=== PATIENT | female | born 1935 | race Caucasian/White ===

== ENCOUNTER 2017-08-20 09:25 | Inpatient (IN) | payer MEDICARE ==
--- NOTE | 2017-08-20 10:02 | RAD ---
FRONTAL CHEST RADIOGRAPH: Comparison: 05-01-14 Indication: Recurrent falls, syncope. FINDINGS: Cardiac silhouette is prominent in size. There is interstitial prominence and vascular congestion see n bilaterally. Eventration of the medial and right hemidiaphragm is present. There is osseous degener ative change. Surgical anchors seen at the level of the right humeral head. IMPRESSION: 1. No lobar consolidation. 2. Evidence of CHF. POS: [facility]
[2017-08-20 10:07] LABS: #Basophils 0.1 thou/uL (0.0-0.2); #Eosinphils 0.1 thou/uL (0.0-0.7); #Lymphocytes 1.5 thou/uL (1.20-3.40); #Monocytes 0.7 thou/uL (0.11-0.59); #Neutrophils 10.1 thou/uL (1.40-6.50); %Basophils 0.6 % (0.0-1.0); %Eosinophils 0.4 % (0.0-10.0); %Lymphocytes 12.2 % (21.0-51.0); %Monocytes 5.5 % (0.0-10.0); %Neutrophils 81.2 % (42.0-75.0); Hemoglobin 12.2 g/dL (12.0-16.0); Mean Corpuscular HGB CONC 33.9 g/dL (32.0-36.0); Mean Corpuscular Hemoglobin 31.6 pg (27.0-31.0); Mean Platelet Volume 6.4 fL (7.4-10.4); Platelet Count 337 thou/uL (130-400); RBC Distribution Width 12.8 % (11.5-14.5); Red Blood Cell (RBC) Count 3.87 mill/uL (4.20-5.40); White Blood Cell (WBC) Count 12.4 thou/uL (4.8-10.8)
[2017-08-20 10:26] LABS: ALT (SGPT) 14 U/L (8-55); AST (SGOT) 16 U/L (5-34); Albumin 4.5 g/dL (3.4-4.8); Alkaline Phosphatase 108 U/L (40-150); Anion Gap 15 mmol/L (10-20); BUN (Urea Nitrogen) 10 mg/dL (9.8-20.1); CK (CPK) 182 U/L (29-168); Calc. Creatinine Clearance 0 mL/min (70-130); Calcium 9.4 mg/dL (7.8-10.44); Carbon Dioxide 23 mmol/L (23-31); Chloride 87 mmol/L (98-107); Estimated GFR-MDRD 73; Globulin 3.2 g/dL (2.4-3.5); Glucose 113 mg/dL (83-110); Lipase 12 U/L (8-78); Potassium 3.4 mmol/L (3.5-5.1); Protein, Total 7.7 g/dL (6.0-8.3); Sodium 122 mmol/L (136-145)
[2017-08-20 10:30] LABS: CKMB 1.9 ng/mL (0-6.6); Troponin I Less than 0.010 ng/mL (< 0.028)
[2017-08-20] MEDS ORDERED: Ondansetron HCl/PF 4 MG/2 ML Vial ONE (10:54)
[2017-08-20 10:56] LABS: Bilirubin Negative (Negative); Blood, Urine Moderate (Negative); Clarity CLOUDY (Clear); Glucose, Urine (Dipstick) Negative (Negative); Leukocyte Trace (Negative); Nitrite Negative (Negative); Protein, Urine (Dipstick) 100 mg/dL (Neg-Trace); Specific Gravity, Urine 1.012 (1.002-1.036)
[2017-08-20 10:58] LABS: Bacteria/HPF 4+ HPF (None Seen); Hyaline Casts/LPF 0-3 HYALINE CAST LPF (0-3 Hyaline); Pathc Cast-AUWi Flag 0.29 (0-2.49); Squamous Epithelial 0-3 HPF (0-3)
--- NOTE | 2017-08-20 11:13 | CT ---
CT FACIAL BONES: Date: 08/20/17 Multiple axial tomograms obtained through facial bones with multiplanar reconstruction. INDICATION: Fall with injury to face. FINDINGS: Nasal bones appear intact. Orbits appear intact. Lamina papyracea appear intact. Zygoma appear intact . The paranasal sinuses are well aerated and clear of mucosal edema. The maxilla appears intact. The mandible appears intact. There is mild basilar invagination. The odontoid rides slightly high within the foramen magnum. IMPRESSION: 1. No evidence of facial bone fracture. 2. Mild basilar invagination, probably chronic and stable in this patient. POS: [facility]
--- NOTE | 2017-08-20 11:18 | CT ---
CT CERVICAL SPINE: HISTORY: Fall. COMPARISON: Comparison is made to previous exam from 05/02/15. FINDINGS: Axial images are obtained with coronal and sagittal reconstructions. CT images cervical spine demonstrate no evidence of acute cervical spine fractures. Cervical spine a lignment is within normal limits. No significant evidence of vertebral body abnormality is seen. Th e central canal and neural foramen are patent. IMPRESSION: 1. Normal CT cervical spine. 2. Incidentally noted atherosclerotic calcification of the distal common carotid artery seen bilater ally. POS: [facility]
--- NOTE | 2017-08-20 11:18 | CT ---
NONCONTRAST CT HEAD: Date: 08/30/17 HISTORY: Multiple falls recently. Symptoms have worsened in the past 1-2 weeks. Positive loss of consciousness after falling down stairs last week. Patient reports headache and difficulty walking. COMPARISON: 05/02/15. FINDINGS: There has been interval development of a small left parafalcine area of increased density measuring 1 4.0 mm x 5.0 mm, which is located anteriorly and above the level of the lateral ventricles consistent with a small parafalcine hemorrhage. There has also been interval development of low density anteriorly located bilateral subdural collect ions which measure approximately 5.0 mm in maximal transverse dimensions and demonstrate slightly gre ater increased density than the cerebrospinal fluid within the lateral ventricles. While findings are not related to acute subdural hematomas or collections, findings may be related to subacute but like ly more chronic small subdural collections from prior subdural hemorrhage. Again noted are chronic small vessel ischemic changes and mild cerebral volume loss. There is no hydr ocephalus or midline shift present. No significant mass effect is present. No calvarial fracture is seen, but there is a large area of increased density seen posteriorly at the vertex consistent with large scalp hematoma. Visualized paranasal sinuses and mastoid air cells are clear. No other interval change. IMPRESSION: 1. Acute small, anteriorly located, left parafalcine hemorrhage, measuring 14.0 mm x 5.0 mm. 2. 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 3. Mild cerebral volume loss. 4. Chronic small vessel ischemic changes. 5. Large scalp hematoma posteriorly at the vertex. Above findings discussed with Dr. Reyes in the emergency department on 08/20/17 at 1107 hours. CODE CR.
[2017-08-20] MEDS ORDERED: niCARdipine 20MG In NaCl 20 MG/200 ML BAG ONE (11:42)
[2017-08-20] MEDS ORDERED: Sodium Chloride 0.9% 100 ML ONE (11:42)
[2017-08-20] MEDS ORDERED: cefTRIAXone\\ROCEPHIN 2 GM VIAL ONE (11:42)
[2017-08-20 12:11] LABS: Prothrombin Time 13.2 SEC (12.0-14.7)
[2017-08-20 12:12] LABS: Amphetamine Not Detected (NotDetected); Barbiturates Screen Not Detected (NotDetected); Benzodiazepine Screen Detected (NotDetected); Cocaine Metabolite Screen Not Detected (NotDetected); Medtox Control Line Valid? VALID (VALID); Medtox Reader # READER 1; Methadone Not Detected (NotDetected); Methamphetamine Not Detected (NotDetected); Opiate Screen Not Detected (NotDetected); Oxycodone Screen Not Detected (NotDetected); Phencyclidine (PCP) Not Detected (NotDetected); THC/Cannabinoid Screen Not Detected (NotDetected); Tricyclic Screen Not Detected (NotDetected)
[2017-08-20 12:25] LABS: Acetaminophen Less than 6.0 mcg/mL (10.0-30.0); Alcohol Less than 10 mg/dL (Less than 10); Salicylate Less than 8.0 mg/dL (15.0-30.0)
--- NOTE | 2017-08-20 12:55 | RAD ---
LEFT FOREARM 2 VIEWS: HISTORY: Pain. Trauma. FINDINGS: Two views left forearm demonstrate fiberglass splint. There is a mildly displaced distal ulnar fract ure. A definite distal radius fracture is not appreciated. Possible fracture involving the hamate b one. Refer to hand radiograph report for further details. IMPRESSION: 1. Distal ulnar fracture. 2. Possible hamate bone fracture. POS: [facility]
--- NOTE | 2017-08-20 12:59 | RAD ---
THREE VIEWS LEFT HAND: HISTORY: Trauma. Pain. COMPARISON: None. FINDINGS: There is degenerative change of the 1st carpometacarpal joint space. Associated subluxation and defo rmity. With regard to the osseous structures of the hand and carpal bones, no obvious fracture. If there is pain or point tenderness, immobilization and followup imaging can be performed in 7-10 days. Distal ulnar fracture is identified. IMPRESSION: 1. No definite fracture with regards to the bones in the hands or wrist. Evaluation is somewhat osei ited in terms of carpal bones. Additional imaging if clinically warranted. 2. Chronic change in the 1st carpometacarpal joint space. 3. Distal ulnar fracture. POS: [facility]
[2017-08-20] MEDS ORDERED: Lorazepam 2 MG/ML VIAL SLOW IVP PRN ×2 (13:12→13:54)
[2017-08-20] MEDS ORDERED: Ondansetron HCl/PF 4 MG/2 ML Vial IVP PRN ×2 (13:12→13:54)
[2017-08-20] MEDS ORDERED: Sodium Chloride 0.9% 1,000 ML IV SCH (13:30)
--- NOTE | 2017-08-20 13:55 | HP ---
HISTORY OF PRESENT ILLNESS: Dariusz Ospina is an 82-year-old female who has visited [facility] last week, fell down stairs. She states she lost consciousness, woke up, had fallen down stairs. She was seen in the emergency room there. She has a fracture of her left wrist, has a splint. She w as told to see her primary care doctor to have it off in the near future. She has an appointment to see Dr. Huber next week for that. The patient has fallen several times and over the past 2 years h as had multiple falls. The patient was found on the floor side of the bed, not know if she fell out of bed or fell when standing. She was seen in the emergency room, noted to be hypertensive and a Car dene drip initiated. She had a brain CAT scan and Dr. Brewer was consulted. The patient is alert and oriented. GCS 15. The patient has acute small anterior located left falcine hemorrhage measuri ng 14 x 5 mm. There were some bifrontal subdural collections, old hygromas. Chronic ischemic change s and some ecchymosis over the scalp noted. Dr. Brewer is planning on watching her. Because of h er Cardene drip she will go into [facility]. We will consult Cardiology and Hospitalist to evaluate her fo r her frequent falls. The emergency room physician informs me that the and have narcoti c analgesics that they use interchangeably and sought multiple physicians obtaining these. HOME MEDICATIONS: Listed his zolpidem tartrate 5 mg at bedtime, 40 mg Prilosec a day, multivitamins daily, hydrochlorothiazide daily, hydrocodone 5/325 p.r.n. pain, ferrous sulfate daily, calcium carbo isai daily. PAST SURGICAL HISTORY: 1. 09/06/2014 - Dr. Gamez performed da Shelly right colectomy for a right colon, large right polyp mass. 2. 12/19/2014 Dr. 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 3. Dr. Cortez 05/02/2015 did a right shoulder, closed reduction for fracture dislocation 4. 05/03/2015 - The patient had a left thumb metacarpal and distal phalanx fracture, closed treatmen t with a splint and cast. 5. She has had total abdominal hysterectomy, bilateral salpingo-oophorectomy. 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 The breast specimen reve aled DCIS negative, multifocal ductal carcinoma in situ, TIS N0 M0. FAMILY MEDICAL HISTORY: Noncontributory. REVIEW OF SYSTEMS: Frequent falls. History of seeing multiple physicians with narcotic analgesic us e. PHYSICAL EXAMINATION: VITAL SIGNS: Blood pressure 190/100, heart rate 80. NEURO: Alert and oriented. GCS 15. HEENT: There is ecchymosis right eye. NECK: Cervical collar in place, but does not fit well. LUNGS: Clear to auscultation. CARDIAC: Regular rate and rhythm without murmur or gallop. ABDOMEN: Soft, nontender. PELVIS: Stable. EXTREMITIES: Unremarkable. Splint left forearm, wrist. CT scan of the cervical spine normal, arteriosclerotic calcifications carotid artery bilaterally. Fa cial bone CAT scan, no evidence of fracture, left forearm x-ray, distal ulnar fracture, possible hama te bone fracture. Hand x-ray left; distal ulnar fracture. No carpal bone fractures noted. Chest x- ray; cardiomegaly. No lobar consolidation. ASSESSMENT AND PLAN: 1. CAT scan reveals changes with repeat fall injuries, hygromas as well as the acute bleed which is small and there is no intervention necessary. We will observe her. We will need to address her freq uent falls this hospitalization. We will consult Hospitalist and Cardiology, obtain an echocardiogra m, consult case management for rehab placement, possible assisted living consideration, family is in agreement. 2. Left ulnar fracture. Consult Orthopedics for followup and disposition of this splint, this is a week old after a fall in [place], [place]. 3. 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 4. History of right colectomy. 5. Left partial mastectomy history, DCIS.
[2017-08-20] MEDS ORDERED: cloNIDine 0.1 MG TAB PO PRN (15:32)
[2017-08-20] MEDS ORDERED: traMADol HCl 50 MG TAB PO PRN (15:32)
[2017-08-20] MEDS ORDERED: Diabetic Tussin 200 MG/10 ML UDCUP PO PRN (15:32)
[2017-08-20] MEDS ORDERED: Nitroglycerin 0.4 MG TAB (25 Tab Bottle) SL PRN (15:32)
[2017-08-20] MEDS ORDERED: Acetaminophen 325 MG TAB PO PRN (15:32)
[2017-08-20] MEDS ORDERED: Acetaminophen 650 MG Suppository PR PRN (15:32)
[2017-08-20] MEDS ORDERED: Benzonatate 100 MG CAP PO PRN (15:32)
[2017-08-20] MEDS ORDERED: Senokot 8.6 MG TAB PO PRN (15:32)
[2017-08-20] MEDS ORDERED: Calcium Carbonate 500 MG ChewTAB PO PRN (15:32)
[2017-08-20] MEDS ORDERED: Bisacodyl 5 MG TAB PO PRN (15:32)
[2017-08-20] MEDS ORDERED: Loratadine 10 MG TAB PO PRN (15:32)
[2017-08-20] MEDS ORDERED: hydrALAZINE 20 MG/ML VIAL SLOW IVP PRN (15:32)
[2017-08-20] MEDS ORDERED: Mag-Al 1200 mg/1200 mg/30 ML UDCUP PO PRN (15:32)
[2017-08-20] MEDS ORDERED: CCU Electrolyte Replacement 1 EACH FS ONE (15:37)
[2017-08-20] MEDS ORDERED: Potassium Phosphate 9 MMOL in Sodium Chloride 0.9% 100 ML IVPB PRN (15:39)
[2017-08-20] MEDS ORDERED: Potassium Chloride 20 MEQ TAB PO PRN (15:39)
[2017-08-20] MEDS ORDERED: CCU ELECTROLYTE REPLACEMENT PROTOCOL FS PRN (15:39)
[2017-08-20] MEDS ORDERED: Magnesium Oxide 400 MG TAB PO PRN ×2 (15:39)
[2017-08-20] MEDS ORDERED: Potassium Chloride 40 MEQ in Premix Bag 1 BAG IVPB PRN (15:39)
[2017-08-20] MEDS ORDERED: Potassium Phosphate 12 MMOL in Sodium Chloride 0.9% 250 ML 250 ML IV PRN (15:39)
[2017-08-20] MEDS ORDERED: Potassium Chloride 40 MEQ in Sodium Chloride 0.9% 250 ML 250 ML IVPB PRN (15:39)
[2017-08-20] MEDS ORDERED: Magnesium 2 GM/NS 0.9% 100 ML 2 GM in Premix Bag 1 BAG IVPB PRN (15:39)
[2017-08-20] MEDS ORDERED: Potassium Phosphate 15 MMOL in Sodium Chloride 0.9% 250 ML 250 ML IV PRN (15:39)
--- NOTE | 2017-08-20 16:37 | PDOC.PN ---
- Subjective Encounter Start Date: 08/20/17 Encounter Start Time: 16:35 Subjective: reports dizziness and then fakll for last 3 months. -: denies any CP/SOB/Diaphoresis/paraesthesias /muscl weakness -: IM team consulted for medical management.admitted to trauma team for fall reports vomiting since yesterday and poor PO intake last 2 days. care discussed with at bedside - Objective MAR Reviewed: Yes Vital Signs & Weight: Vital Signs (12 hours) Pulse Ox 08/20/17 16:11 94 L Result Diagrams: 08/20/17 09:56 08/20/17 09:56 Additional Labs: Laboratory Tests 08/20/17 09:56 CK-MB (CK-2) 1.9 Troponin I Less than 0.010 labs reviewed Phys Exam - Physical Examination Constitutional: NAD HEENT: PERRLA, moist MMs, sclera anicteric, oral pharynx no lesions, 2+ tonsils Neck: no nodes, no JVD, supple, full ROM Respiratory: no wheezing, no rales, no rhonchi, clear to auscultation bilateral Cardiovascular: RRR, no significant murmur, no rub Gastrointestinal: soft, non-tender, no distention, positive bowel sounds Musculoskeletal: no edema, pulses present Neurological: non-focal, normal sensation, moves all 4 limbs Psychiatric: normal affect, A&O x 3 Deviation from normal: extensive brusiung all over including head and face Dx/Plan (1) UTI (urinary tract infection) Status: Acute (2) Hypokalemia Code(s): E87.6 - HYPOKALEMIA Status: Acute (3) Uncontrolled hypertension Code(s): I10 - ESSENTIAL (PRIMARY) HYPERTENSION Status: Acute (4) Near syncope Status: Acute (5) Multiple falls Code(s): R29.6 - REPEATED FALLS Status: Acute - Plan plan discussed w/ family, continue antibiotics, PT/OT, respiratory therapy, incentive spirometry, out of bed/ambulate, DVT proph w/SCDs add rocephin. urine cx -: replace potassium and recheck. CCU electrolyte protocol -: ECHO,MRI evelyn and carotid doppler to look for causes of near syncope -: check orthostatics when able to move better. -: cardene drip for uncontrolled HTN * .Tele monitoring. * cardiology consulted * am labs * IM team will follow Review of Systems - Review of Systems Constitutional: weakness, malaise. negative: fever, chills, sweats, other ENT: negative: Ear Pain, Ear Discharge, Nose Pain, Nose Discharge, Nose Congestion, Mouth Pain, Mouth Swelling, Throat Pain, Throat Swelling, Other Respiratory: negative: Cough, Dry, Shortness of Breath, Hemoptysis, SOB with Excertion, Pleuritic Pain, Sputum, Wheezing Cardiovascular: light headedness. negative: chest pain, palpitations, orthopnea , paroxysmal nocturnal dyspnea, edema, other Gastrointestinal: Nausea, Vomiting Genitourinary: negative: Dysuria, Frequency, Incontinence, Hematuria, Retention , Other Musculoskeletal: negative: Neck Pain, Shoulder Pain, Arm Pain, Back Pain, Hand Pain, Leg Pain, Foot Pain, Other Skin: negative: Rash, Lesions, Arnav, Bruising, Other Neurological: negative: Weakness, Numbness, Incoordination, Change in Speech, Confusion, Seizures, Other - Medications/Allergies Allergies/Adverse Reactions: Allergies Allergy/AdvReac Type Severity Reaction Status Date / Time Sulfa (Sulfonamide Allergy RASH AND Verified 08/20/17 12:53 Antibiotics) ITCHING Medications: Current Medications Acetaminophen (Tylenol) 650 mg PO Q4H PRN PRN Reason: Headache/Fever or Mild Pain Acetaminophen (Tylenol) 650 mg [place] Q4H PRN PRN Reason: Headache/Fever or Mild Pain Al Hydroxide/Mg Hydroxide (Maalox) 15 ml PO Q4H PRN PRN Reason: Heartburn or Indigestion Benzonatate (Tessalon) 100 mg PO Q4H PRN PRN Reason: Cough Bisacodyl (Dulcolax) 10 mg PO DAILYPRN PRN PRN Reason: Constipation Calcium Carbonate (Tums) 1,000 mg PO Q4H PRN PRN Reason: Heartburn or Indigestion Clonidine (Catapres) 0.1 mg PO Q4H PRN PRN Reason: Systolic BP > 160 Famotidine (Pepcid) 20 mg PO BID SNEHA Guaifenesin (Robitussin Sf) 200 mg PO Q4H PRN PRN Reason: Cough Hydralazine HCl (Apresoline) 10 mg SLOW IVP Q4H PRN PRN Reason: Systolic BP > 170 Sodium Chloride (Normal Saline 0.9%) 1,000 mls @ 70 mls/hr IV .[id number] SNEHA Ceftriaxone Sodium 1 gm/ (Sodium Chloride) 100 mls @ 200 mls/hr IVPB Q24HR SNEHA Potassium Chloride 40 meq/ (Sodium Chloride) 270 mls @ 135 mls/hr IVPB ASDIR PRN PRN Reason: FOR SERUM K+ 2.5 - 3.5 Potassium Chloride 40 meq/ (Device) 100 mls @ 50 mls/hr IVPB ASDIR PRN PRN Reason: FOR SERUM K+ 2.5 - 3.5 Magnesium Sulfate 1 gm/ Sodium (Chloride) 102 mls @ 102 mls/hr IV PRN PRN PRN Reason: MAG LEVEL 1.4 - 2.0 Magnesium Sulfate 2 gm/ Device 100 mls @ 100 mls/hr IVPB ASDIR PRN PRN Reason: MAGNESIUM < 1.4 Potassium Phosphate 9 mmol/ (Sodium Chloride) 103 mls @ 25.75 mls/hr IVPB ASDIR PRN PRN Reason: Phosphate 1.0-1.8 Potassium Phosphate 12 mmol/ (Sodium Chloride) 254 mls @ 63.5 mls/hr IV ASDIR PRN PRN Reason: Serum phosphate 0.5-0.9 Potassium Phosphate 15 mmol/ (Sodium Chloride) 255 mls @ 63.75 mls/hr IV ASDIR PRN PRN Reason: Serum Phos < 0.5 Loratadine (Claritin) 10 mg PO DAILYPRN PRN PRN Reason: Sinus Symptoms Lorazepam (Ativan) 2 mg SLOW IVP Q6H PRN PRN Reason: Anxiety/Agitation Magnesium Oxide (Magnesium Oxide) 400 mg PO BIDPRN PRN PRN Reason: FOR SERUM MAG 1.4 - 2.0 Magnesium Oxide (Magnesium Oxide) 800 mg PO PRN PRN PRN Reason: FOR SERUM MAG < 1.4 Miscellaneous Medication (Phos-Nak) 1 pkt PO TIDPRN PRN PRN Reason: FOR PHOS LEVEL 1.0 - 1.8 Miscellaneous Medication (Phos-Nak) 2 pkt PO TIDPRN PRN PRN Reason: FOR PHOS LEVEL 0.5 - 1.0 Nitroglycerin (Nitrostat) 0.4 mg SL Q5MIN PRN PRN Reason: Chest Pain Ccu Electrolyte (Replacement Protocol) 0 each FS PRN PRN PRN Reason: FOR ELECTROLYTE REPLACEMENT Ondansetron HCl (Zofran) 4 mg IVP Q6H PRN PRN Reason: Nausea Potassium Chloride (K-Dur) 40 meq PO ASDIR PRN PRN Reason: FOR SERUM K+ 2.5 - 3.5 Potassium Chloride (Klor-Con) 40 meq PER TUBE ASDIR PRN PRN Reason: FOR SERUM K+ 2.5-3.5 Senna (Senokot) 2 tab PO HSPRN PRN PRN Reason: Constipation Sodium Chloride (Flush - Normal Saline) 10 ml IVF PRN PRN PRN Reason: Saline Flush Tramadol HCl (Ultram) 50 mg PO Q4H PRN PRN Reason: Moderate Pain (4-6)
[2017-08-20 17:07] VITALS: BMI 23.8
[2017-08-20] MEDS: Sodium Chloride 0.9% 1,000 ML IV SCH (17:57)
--- NOTE | 2017-08-20 18:08 | ULT ---
CAROTID ULTRASOUND: 08/20/17 COMPARISON: None. HISTORY: Dizziness and multiple falls. TECHNIQUE: Multiplanar bustos scale and color doppler images were obtained in a carotid ultrasound. Spectral deann sis of the doppler waveforms were performed. FINDINGS: A small amount of plaque is seen in the proximal bilateral internal carotid arteries. The doppler wav eforms are normal bilaterally. Peak systolic velocity in the right ICA is 70 cm/s. Peak systolic velocity in the right CCA is 132 cm /s. The right ICA/CCA ratio is 0.5. Peak systolic velocity in the left ICA is 74 cm/s. Peak systolic velocity in the left CCA is 85 cm/s. The left ICA/CCA ratio is 0.8. Both vertebral arteries demonstrate antegrade flow without focal stenosis. IMPRESSION: No evidence of hemodynamically significant stenosis. POS: [facility]
[2017-08-20] MEDS ORDERED: niCARdipine HCl 25 MG in Sodium Chloride 0.9% 250 ML 240 ML IVPB SCH (19:15)
[2017-08-20] MEDS ORDERED: Famotidine 20 MG TAB PO SCH (21:00)
[2017-08-20] MEDS: Famotidine 20 MG TAB PO SCH (21:58)
[2017-08-21] MEDS ORDERED: cefTRIAXone\\ROCEPHIN 1 GM in Sodium Chloride 0.9% 100 ML IVPB SCH (00:01)
--- NOTE | 2017-08-21 04:39 | CON ---
DATE OF CONSULTATION: 08/20/2017 HISTORY OF PRESENT ILLNESS: This is an 82-year-old female who reports to our ER today for evaluation of dizziness/syncope. She states that Wednesday she fell down, two flights of stairs and went to a [place] ER. At that time, she was diagnosed with a small bleed and that she also had a left wrist fracture. In the hospital kept her for a few days and then released her to go home and follow up with her primary care physician. Since that time, she has fallen several more times, she has not been able to make a follow up with her primary care physician. She fell again today and that is why she is in our emergency room. Patient states that her falls are usually associated with a dizziness and weakness. She states that this vertigo makes the room spin and she has to stop and sit close her eyes for it to return to normal. She states that she will get dizzy even if she just turns her head quickly. Today, the patient states that she has a dull headache across the front of her head like a band. It is a 5/10. Patient is not taking any blood thinners or aspirin. PAST MEDICAL HISTORY: Migraines and vertigo. PAST SURGICAL HISTORY: Hysterectomy, colon resection, two bunion surgeries, urinary surgery, breast mass removal. FAMILY HISTORY: Dad from cardiovascular accident, mom from a stroke, aunt also had a cardiovascular accident. SOCIAL HISTORY: Patient is and lives with her 60 some years in a home. She states that she does not smoke or drink. It is unclear if the patient has an opioid addiction. ALLERGIES: SULFA, ANTIBIOTICS. CURRENT MEDICATIONS: Olanzapine-fluoxetine, meclizine, omeprazole, trazodone, tramadol, hydrochlorothiazide. PHYSICAL EXAMINATION: CONSTITUTIONAL: Vital signs have been reviewed. Patient is afebrile, pulse is normal. Patient is hypertensive. GENERAL: Patient is alert and oriented to person, place, and time. She is resting comfortably in her ER hospital bed. HEAD: Head is atraumatic, normocephalic. EYES: Pupils are equal, round, and reactive to light. Extraocular movements are intact. Conjunctivae is normal. Sclera is normal. ENT: Hearing is intact. Moist mucous membranes. NECK: Normal range of motion. Trachea is midline. RESPIRATORY: Normal work of breathing room air. CARDIOVASCULAR: Heart rate, regular rate and rhythm. NEUROLOGIC: [place] coma scale 15. Normal speech, spontaneous fluent and understandable. Normal fund of knowledge. No focal motor deficits were noted. No sensory deficits noted. Cranial nerves II-XII were checked and are intact. Full range of motion of the neck. EXTREMITIES: Upper extremity: Patient has a left wrist splint. She can wiggle her fingers on that side and has motion with her shoulder and elbow, 5/5 strength in deltoids and biceps. Right shoulder has a previous injury, she does not move that arm well. 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 Lower extremities has 5/5 motor strength. IMAGING: CT of the brain, acute small anterior located left parafalcine hemorrhage, subacute versus chronic small bifrontal subdural collections, mild cerebral volume loss, chronic small vessel ischemic changes, large scalp hematoma. ASSESSMENT AND PLAN: CT reveals changes consistent with frequent falls, a small acute anterior located left parafalcine hemorrhage is present. There is no neurosurgical intervention needed at this time. Patient will need to be observed. Patient should be worked up for her frequent falls. MITCHELL
--- NOTE | 2017-08-21 04:42 | CON ---
DATE OF CONSULTATION: 08/20/2017 HISTORY OF PRESENT ILLNESS: Ms. Ospina is a very pleasant 82-year-old female. Her tells me that she is followed by Dr. Huber. He was actually tried calling Dr. Huber try to get in to see him. She actually fell backwards down some stairs last week in [place], [place], fractured her left upper extremity, lost consciousness and was found to have a subdural hematoma there. She has a splint on her left arm. She has a history of falling last 5-6 months according to the , although the history provided to Dr. Thornton, but this has been going on for several years. He denies that she has ever had a neurological workup. She was noted to be hypertensive in the ER with a diastolic of over 100 and a systolic over 200, so Cardene was started. Some of these episodes have been orthostatic by history. Apparently, she had an episode this morning where her heard her yelling and found her on the floor. He said it was all we could to get her up in bed. They did not want to go to the [facility], so the and the son loaded her in the car and drove her here. PAST MEDICAL HISTORY: 1. Remarkable for right hemicolectomy for a large mass. 2. History of left mastectomy for carcinoma in situ. 3. History of closed reduction for a fracture dislocation of her right shoulder in 2016. 4. History of closed treatment of the thumb metacarpal and distal phalanx fracture in 2016 during the same admission. 5. History of a hysterectomy. 6. Bilateral salpingo-oophorectomy. 7. Colon resection. 8. Adenoma in her breast, specimen was carcinoma in situ. FAMILY HISTORY: Negative for lung disease at an early age. REVIEW OF SYSTEMS: 10 point otherwise, negative. PHYSICAL EXAMINATION: GENERAL: She is pleasant, cooperative. She is oriented x3. She has extensive ecchymoses on her right face. She has a splint on her left upper extremity to the elbow. VITAL SIGNS: Blood pressure 137/93, heart rate is 112, respiratory rate 20, oximetry is 96 on 2 liters. HEENT: Pupils are equal. Sclerae is anicteric. NECK: Supple. She has no neck pain. LUNGS: Clear. HEART: Regular rhythm. S1 and S2 are normal. ABDOMEN: Soft and nontender. EXTREMITIES: Without clubbing, cyanosis, or edema. Head CT shows chronic subdurals that are bifrontal, small vessel ischemic changes were noted. There is a parafalcine hemorrhage seen. With her significant hypertension on presentation, it would seem unlikely that these episodes are orthostatic, although orthostatic blood pressures should be checked. Since this has been going on for at least 6 months, it is unlikelythis is related to cardiac rhythm disturbance and certainly not likely to be related to carotid disease even if carotid disease is found or identified. There is a note in the admission history and physical that she and her have some narcotic seeking behavior. We will have to contact Dr. Huber who apparently is out of the office this week to sort through that. I think her management at this point is appropriate. The Cardene drip can be discontinued once her blood pressure is controlled, adding Norvasc may be helpful. This is a 50 minute visit with greater than 50% of the time spent on unit with coordination of care. MITCHELL
[2017-08-21 05:28] LABS: #Lymphocytes 1.4 thou/uL (1.20-3.40); #Monocytes 0.9 thou/uL (0.11-0.59); #Neutrophils 11.3 thou/uL (1.40-6.50); %Basophils 0.3 % (0.0-1.0); %Eosinophils 0.3 % (0.0-10.0); %Lymphocytes 10.5 % (21.0-51.0); %Monocytes 6.3 % (0.0-10.0); %Neutrophils 82.5 % (42.0-75.0); Hemoglobin 11.8 g/dL (12.0-16.0); Mean Corpuscular HGB CONC 34.2 g/dL (32.0-36.0); Mean Corpuscular Hemoglobin 31.9 pg (27.0-31.0); Mean Platelet Volume 6.3 fL (7.4-10.4); Platelet Count 296 thou/uL (130-400); RBC Distribution Width 12.9 % (11.5-14.5); Red Blood Cell (RBC) Count 3.71 mill/uL (4.20-5.40); White Blood Cell (WBC) Count 13.7 thou/uL (4.8-10.8)
[2017-08-21 05:32] LABS: ALT (SGPT) 12 U/L (8-55); AST (SGOT) 16 U/L (5-34); Albumin 3.8 g/dL (3.4-4.8); Alkaline Phosphatase 101 U/L (40-150); Anion Gap 15 mmol/L (10-20); BUN (Urea Nitrogen) 8 mg/dL (9.8-20.1); Bilirubin, Total 0.6 mg/dL (0.2-1.2); Calc. Creatinine Clearance 0 mL/min (70-130); Calcium 8.8 mg/dL (7.8-10.44); Carbon Dioxide 19 mmol/L (23-31); Chloride 90 mmol/L (98-107); Estimated GFR-MDRD Greater than 90; Glucose 103 mg/dL (83-110); Potassium 3.3 mmol/L (3.5-5.1); Protein, Total 6.8 g/dL (6.0-8.3); Sodium 121 mmol/L (136-145)
--- NOTE | 2017-08-21 08:09 | PRG ---
DATE OF SERVICE: 08/21/2017 NEUROSURGERY NOTE SUBJECTIVE: I personally interviewed and examined the patient and agree with documentation of Linda Alvarez PA-C dated 08/20/2017. Briefly, Ms. Dariusz Ospina is an 82-year-old woman with chronic narcotic use, UTI and positional vertig o who has had a number of falls at home. It has become more and more difficult for her to manage at home independently. One of the falls resulted in a fractured wrist. The reason we were consulted wa s for interhemispheric subdural hematoma. She was admitted overnight and watched in the ICU and I am seeing her this morning in the ICU bed. Her vitals overnight did not show any fever. Blood pressur es have been in the 140s to 150s. When I walked in the room, she is awake, she is alert, she answers questions appropriately. Cranial nerves are working well. There is no neglect. There is no drift. There is no lateralizing motor or sensory deficits. I reviewed imaging myself and there are subdural collections of spinal fluid anterior to the frontal lobes bilaterally without mass effect and without shift. I think this is related to atrophy and thes e are hygromas rather than subdurals. However, there is a small collection of subdural blood along t he interhemispheric falx and this blood is not causing mass effect whatsoever. My plan for Ms. Ospina is to rescan her head in about 3 weeks to ensure there is resolution of the int erhemispheric hemorrhage. I will not offer her surgery as I do not think that there is any reason to do so. I would not offer her surgery, as I do not think that the hygromas are causing any symptoms and the interhemispheric blood is so little that it will likely wash away on its own over time. I do, however, believe that Ms. Ospina should be worked up for positional vertigo. I do not think she has myelopathy as the CT scan of the cervical spine does not show any spinal cord compression. I wi ll defer to the medical team for ongoing management and be available for questions should they arise during this hospitalization.
[2017-08-21] MEDS ORDERED: Acetaminophen 325 MG TAB PO SCH ×2 (08:15→09:45)
[2017-08-21] MEDS ORDERED: Hydrochlorothiazide 25 MG TAB PO SCH (08:15)
[2017-08-21] MEDS: Sodium Chloride 0.9% 1,000 ML IV SCH (08:39)
[2017-08-21] MEDS ORDERED: Amlodipine 5 MG TAB PO SCH (09:00)
[2017-08-21] MEDS ORDERED: Scopolamine 1.5 mg/72 hour Patch TD SCH (09:00)
[2017-08-21] MEDS ORDERED: Amlodipine 10 MG TAB PO SCH (09:00)
[2017-08-21] MEDS: Ferrous Sulfate 325 MG TAB PO SCH (10:23)
[2017-08-21] MEDS: Multivit, Therapeutic 1 TAB PO SCH (10:23)
[2017-08-21] MEDS: Famotidine 20 MG TAB PO SCH ×2 (10:23→20:57)
[2017-08-21] MEDS: Calcium Carbonate + Vit D 1 TAB PO SCH (10:24)
[2017-08-21] MEDS: Acetaminophen 500 MG TAB PO SCH ×3 (10:32→23:32)
--- NOTE | 2017-08-21 10:53 | PRG ---
DATE OF SERVICE: 08/21/2017 SUBJECTIVE: Dariusz Ospina has been transferred out of the ICU. She has had no rhythm disturbances. PHYSICAL EXAMINATION: VITAL SIGNS: Heart rates in the 90s, blood pressure 160/84, respiratory rate is 18. LUNGS: Unchanged. HEART: Unchanged. ABDOMEN: Unchanged. It would not be unreasonable to keep her in a monitored bed situation just simply to rule out intermi ttent bradycardia that might lead to falls. Her history sounds like gait instability, deconditioning , plus or minus orthostatic issues, but she would benefit in my opinion from telemetry monitoring sin ce she is in the hospital. We will sign off on transfer out of the ICU since she is on the Trauma Se rvice.
[2017-08-21 11:08] LABS: Magnesium 1.6 mg/dL (1.6-2.6); Phosphorus 2.6 mg/dL (2.3-4.7)
--- NOTE | 2017-08-21 11:29 | PRG ---
DATE OF SERVICE: 08/21/2017 SUBJECTIVE: This is an 82-year-old female in hospital day #2, status post multiple falls with an acu te on subacute ICH. The patient has a history of vertigo and multiple falls recently. Her urinalysi s this morning reveals a gram negative tee urinary tract infection. Overnight, the patient has remai katarina hemodynamically stable and Cardene drip is off this morning. She has had multiple PVCs, likely s econdary to hypokalemia. Upon our evaluation this morning, she has a chief complaint of headache, bu t otherwise vocalizes no complaint. OBJECTIVE: VITAL SIGNS: Temperature 97.9, pulse 95, respiration 18, O2 sat 96% on room air, blood pressure 160/ 84. GENERAL: Well-developed elderly appearing female in no acute distress, resting in bed. HEAD: Right-sided ecchymosis is noted. There is a posterior scalp suture. PULMONARY: Normal work of breathing. Symmetric rise. CARDIOVASCULAR: Regular rate and rhythm. GASTROINTESTINAL: Abdomen is soft, nontender, nondistended. MUSCULOSKELETAL: Moves all extremities x4. Left upper extremity dressing intact. NEUROLOGIC: No focal deficit is noted. GCS is 15. LABORATORY DATA: WBC 13.7, hemoglobin 11.8, hematocrit 34.6, platelet count 296. Sodium 121, potass ium 3.3, chloride 90, carbon dioxide 19, BUN 8, creatinine 0.63. AST and ALT are within normal limit s. Magnesium and phosphorus are pending. Microbiology with presumptive E. coli greater than 100,000 colony forming units. ASSESSMENT: 1. Status post fall. 2. 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 3. Left ulnar fracture after 1 week old. Orthopedic Surgery has been consulted. 4. Acute traumatic pain. 5. Escherichia coli urinary tract infection, present on admission. 6. Altered mental status secondary to traumatic brain injury and possible urinary tract infection. 7. Hyponatremia. 8. History of hypertension on hydrochlorothiazide as a home medication, likely contributing to above hyponatremia. 9. Hypokalemia. PLAN: Start the patient on Bactrim p.o. b.i.d. We will initiate free water restriction, 1200 mL. Di scontinue hydrochlorothiazide as may be contributing to hyponatremia. The patient has been weaned of f of Cardene drip. We will start Norvasc 5 mg p.o. daily. Continue p.r.n. antihypertensives. Tylen ol and Ultram for pain control. Continue to monitor neuro status. Follow Orthopedic, Neurosurgery a nd Cardiology recommendations. Per discussion with Critical Care Medicine, the patient should be tra nsferred to a monitor bed. Case management for eventual disposition. Patient is from [place] a nd would like to be transferred to the [place] swing bed once medically cleared. Replete abnorm al electrolytes. PT, OT, and speech. The patient was seen and evaluated with Dr. Kaye.
[2017-08-21] MEDS ORDERED: Acetaminophen 500 MG TAB PO SCH (12:00)
--- NOTE | 2017-08-21 13:12 | MRI ---
MRI EMELYN NONCONTRAST: CLINICAL HISTORY: Head injury related to fall. FINDINGS: There is susceptibility at the interhemispheric falx anteriorly localizing to small subdural hematoma depicted on preceding head CT. There are subdural hygromas/chronic subdural hematomas overlying eac h frontal convexity stable in volume to the preceding head CT. A prominent posterior scalp hematoma is present. There is mild to moderate chronic microvascular ischemic disease involving the cerebral white matter. Ventricular system is age appropriate in size. No midline shift. There is right mast oid fluid. Skull base flow voids are preserved. [place] intraocular lenses are absent. There is no acute territorial infarction. IMPRESSION: 1. Small subdural hematoma along the interhemispheric falx, anteriorly, is redemonstrated, as are ch ronic subdural hematoma/subdural hygroma formation overlying each frontal convexity. 2. Prominent posterior scalp hematoma. 3. No acute territorial infarction or midline shift. POS: [facility]
[2017-08-21] MEDS: traMADol HCl 50 MG TAB PO SCH ×2 (13:54→20:57)
--- NOTE | 2017-08-21 15:41 | PDOC.PN ---
- Subjective Encounter Start Date: 08/21/17 Encounter Start Time: 15:41 Subjective: feels better.no acute changes - Objective MAR Reviewed: Yes Vital Signs & Weight: Vital Signs (12 hours) Temp Pulse Pulse Pulse Resp BP BP 08/21/17 13:15 99 92 157/74 H 141/72 H 08/21/17 11:42 97.5 F L 94 16 08/21/17 11:25 08/21/17 09:00 98.5 F 94 16 08/21/17 08:00 97.9 F 92 20 08/21/17 04:00 98.7 F BP BP BP BP Pulse Ox 08/21/17 13:15 08/21/17 11:42 130/81 95 08/21/17 11:25 196/90 H 181/81 H 119/63 08/21/17 09:00 158/102 H 94 L 08/21/17 08:00 08/21/17 04:00 Weight Weight 2.406 oz Most Recent Monitor Data Heart Rate from ECG 95 NIBP 160/84 NIBP BP-Mean 105 Respiration from ECG 18 SpO2 96 I&O: 08/20/17 08/21/17 08/22/17 06:59 06:59 06:59 Intake Total 1562 280 Output Total 1525 Balance 37 280 Result Diagrams: 08/21/17 04:20 08/21/17 04:20 Additional Labs: Microbiology 08/20/17 10:45 Urine clean catch Urine Culture - Preliminary Presumptive Escherichia coli Laboratory Tests 05/02/15 08/20/17 08/21/17 18:24 09:56 04:20 Sodium 128 L 122 L 121 L Phosphorus Magnesium 08/21/17 04:20 Sodium Phosphorus 2.6 Magnesium 1.6 labs reviewed Phys Exam - Physical Examination Constitutional: NAD HEENT: PERRLA, moist MMs, sclera anicteric, oral pharynx no lesions Neck: no nodes, no JVD, supple, full ROM Respiratory: no wheezing, no rales, no rhonchi, clear to auscultation bilateral Cardiovascular: RRR, no significant murmur Gastrointestinal: soft, non-tender, no distention, positive bowel sounds Musculoskeletal: no edema, pulses present Neurological: non-focal, normal sensation, moves all 4 limbs Psychiatric: normal affect, A&O x 3 Skin: no rash Dx/Plan (1) UTI (urinary tract infection) Status: Acute (2) Hypokalemia Code(s): E87.6 - HYPOKALEMIA Status: Acute (3) Uncontrolled hypertension Code(s): I10 - ESSENTIAL (PRIMARY) HYPERTENSION Status: Acute (4) Near syncope Status: Acute (5) Multiple falls Code(s): R29.6 - REPEATED FALLS Status: Acute - Plan plan discussed w/ family, continue antibiotics, PT/OT, respiratory therapy, incentive spirometry, DVT proph w/SCDs would recommend IV Abx for UA.currently changed to PO bactrim -: Stop HCTZ.sodium low because of that.monitor -: ECHO pending. -: carotid US negative -: would recommend anti hypertensives.Dced for some reason * . Review of Systems - Review of Systems Constitutional: negative: fever, chills, sweats, weakness, malaise, other Respiratory: negative: Cough, Dry, Shortness of Breath, Hemoptysis, SOB with Excertion, Pleuritic Pain, Sputum, Wheezing Cardiovascular: negative: chest pain, palpitations, orthopnea, paroxysmal nocturnal dyspnea, edema, light headedness, other Gastrointestinal: negative: Nausea, Vomiting, Abdominal Pain, Diarrhea, Constipation, Melena, Hematochezia, Other Genitourinary: negative: Dysuria, Frequency, Incontinence, Hematuria, Retention , Other Musculoskeletal: negative: Neck Pain, Shoulder Pain, Arm Pain, Back Pain, Hand Pain, Leg Pain, Foot Pain, Other Neurological: negative: Weakness, Numbness, Incoordination, Change in Speech, Confusion, Seizures, Other - Medications/Allergies Allergies/Adverse Reactions: Allergies Allergy/AdvReac Type Severity Reaction Status Date / Time Sulfa (Sulfonamide Allergy RASH AND Verified 08/20/17 12:53 Antibiotics) ITCHING Medications: Current Medications Acetaminophen (Tylenol) 1,000 mg PO Q6HR [facility] Last Admin: 08/21/17 10:32 Dose: 1,000 mg Al Hydroxide/Mg Hydroxide (Maalox) 15 ml PO Q4H PRN PRN Reason: Heartburn or Indigestion Benzonatate (Tessalon) 100 mg PO Q4H PRN PRN Reason: Cough Bisacodyl (Dulcolax) 10 mg PO DAILYPRN PRN PRN Reason: Constipation Calcium Carbonate (Tums) 1,000 mg PO Q4H PRN PRN Reason: Heartburn or Indigestion Calcium/Vitamin D (Caltrate 600 + Vit D) 1 tab PO DAILY [facility] Last Admin: 08/21/17 10:24 Dose: 1 tab Clonidine (Catapres) 0.1 mg PO Q4H PRN PRN Reason: Systolic BP > 160 Famotidine (Pepcid) 20 mg PO BID [facility] Last Admin: 08/21/17 10:23 Dose: 20 mg Ferrous Sulfate (Feosol) 325 mg PO QAM-WM [facility] Last Admin: 08/21/17 10:23 Dose: 325 mg Guaifenesin (Robitussin Sf) 200 mg PO Q4H PRN PRN Reason: Cough Hydralazine HCl (Apresoline) 10 mg SLOW IVP Q4H PRN PRN Reason: Systolic BP > 170 Loratadine (Claritin) 10 mg PO DAILYPRN PRN PRN Reason: Sinus Symptoms Multivitamins (Theragran) 1 tab PO DAILY [facility] Last Admin: 08/21/17 10:23 Dose: 1 tab Nitroglycerin (Nitrostat) 0.4 mg SL Q5MIN PRN PRN Reason: Chest Pain Ccu Electrolyte (Replacement Protocol) 0 each FS PRN PRN PRN Reason: FOR ELECTROLYTE REPLACEMENT Ondansetron HCl (Zofran) 4 mg IVP Q6H PRN PRN Reason: Nausea Pantoprazole Sodium (Protonix) 40 mg PO DAILY [facility] Last Admin: 08/21/17 10:23 Dose: 40 mg Scopolamine (Transderm Scop) 1.5 mg TD Q3D [facility] Last Admin: 08/21/17 10:24 Dose: 1.5 mg Senna (Senokot) 2 tab PO HSPRN PRN PRN Reason: Constipation Sodium Chloride (Flush - Normal Saline) 10 ml IVF PRN PRN PRN Reason: Saline Flush Tramadol HCl (Ultram) 50 mg PO Q8HR [facility] Last Admin: 08/21/17 13:54 Dose: 50 mg
--- NOTE | 2017-08-21 17:01 | CON ---
DATE OF CONSULTATION: 08/21/2017 HISTORY OF PRESENT ILLNESS: The patient is an 82-year-old woman who presented after having multiple falls. The patient has no previous cardiac history. She states approximately 2 months ago she start ed having episode where she felt extremely lightheaded and had lost consciousness on several occasion s. She was in [place], [place] when she fell down and had a severe fall in which hit her head. The patient denied having any palpitations or chest pain during any of these episodes. The patient gabriela plasencia has a history of use of narcotic analgesics. PAST MEDICAL HISTORY: Significant for, 1. Hypertension. 2. Multiple fractures. ALLERGIES: She is allergic to SULFA DRUGS. MEDICATION ON ADMISSION: Include she takes olanzapine/fluoxetine (Prozac) 3/25 mg tablet daily, mecl izine 25 mg daily, omeprazole 40 daily, trazodone 50 at bedtime, tramadol 50 at bedtime, 25 meri ly. PHYSICAL EXAMINATION: GENERAL: This is an elderly woman in no acute distress with left arm catheterization with multiple b ruises throughout her face and trunk. VITAL SIGNS: Blood pressure is 131/78. NECK: No jugular venous distention. LUNGS: Clear to auscultation. HEART: Regular rate and rhythm, normal S1, S2, no murmurs. ABDOMEN: Nondistended. EXTREMITIES: No edema. The skin shows multiple ecchymotic lesions. VASCULAR: Radial pulses are 2+. LABORATORY DATA: Sodium 122, potassium 3.4, chloride 87, bicarbonate 10, BUN 0.76, glucose is 136. Her white blood count 12.4, hemoglobin 12.2, hematocrit 36.0, platelets are 337. Her EKG revealed he r to have normal sinus tachycardia with left ventricular hypertrophy. Echocardiogram revealed normal left ventricular systolic function, estimated ejection fraction 60%-65%. IMPRESSION: 1. Syncope, possibly orthostatic: 2. Hypertension. 3. Possible overuse of narcotic analgesics. This patient presents with a syncopal episode, possibly orthostatic. She has left ventricular systol ic function. There is no evidence of conduction disease on her echocardiogram. We will check the rachel esperanza's orthostatics. We will follow this patient with you through her hospitalization.
[2017-08-21] MEDS ORDERED: traZODone HCl 50 MG TAB PO PRN (20:43)
[2017-08-22 05:10] LABS: Anion Gap 11 mmol/L (10-20); BUN (Urea Nitrogen) 13 mg/dL (9.8-20.1); Calc. Creatinine Clearance 0 mL/min (70-130); Calcium 8.9 mg/dL (7.8-10.44); Carbon Dioxide 25 mmol/L (23-31); Chloride 90 mmol/L (98-107); Estimated GFR-MDRD 78; Glucose 100 mg/dL (83-110); Magnesium 1.7 mg/dL (1.6-2.6); Phosphorus 2.9 mg/dL (2.3-4.7); Sodium 123 mmol/L (136-145)
[2017-08-22 05:13] LABS: Potassium 2.9 mmol/L (3.5-5.1)
[2017-08-22] MEDS ORDERED: Potassium Chloride 20 MEQ TAB PO SCH ×2 (05:45→10:45)
[2017-08-22] MEDS: traMADol HCl 50 MG TAB PO SCH (06:04)
[2017-08-22] MEDS: Acetaminophen 500 MG TAB PO SCH ×3 (06:04→19:42)
[2017-08-22 07:30] LABS: #Basophils 0.1 thou/uL (0.0-0.2); #Eosinphils 0.1 thou/uL (0.0-0.7); #Lymphocytes 1.6 thou/uL (1.20-3.40); #Monocytes 0.7 thou/uL (0.11-0.59); #Neutrophils 6.5 thou/uL (1.40-6.50); %Basophils 0.6 % (0.0-1.0); %Eosinophils 1.3 % (0.0-10.0); %Lymphocytes 17.6 % (21.0-51.0); %Monocytes 7.4 % (0.0-10.0); %Neutrophils 73.2 % (42.0-75.0); Hemoglobin 11.1 g/dL (12.0-16.0); Mean Corpuscular HGB CONC 34.6 g/dL (32.0-36.0); Mean Corpuscular Hemoglobin 32.2 pg (27.0-31.0); Mean Corpuscular Volume 93.1 fL (78.0-98.0); Mean Platelet Volume 6.6 fL (7.4-10.4); Platelet Count 291 thou/uL (130-400); RBC Distribution Width 13.1 % (11.5-14.5); Red Blood Cell (RBC) Count 3.46 mill/uL (4.20-5.40); White Blood Cell (WBC) Count 8.9 thou/uL (4.8-10.8)
[2017-08-22] MEDS ORDERED: traMADol HCl 50 MG TAB PO PRN (10:46)
[2017-08-22] MEDS: Ferrous Sulfate 325 MG TAB PO SCH (10:51)
[2017-08-22] MEDS: Multivit, Therapeutic 1 TAB PO SCH (10:51)
[2017-08-22] MEDS: Famotidine 20 MG TAB PO SCH ×2 (10:51→20:52)
[2017-08-22] MEDS: Calcium Carbonate + Vit D 1 TAB PO SCH (10:51)
[2017-08-22] MEDS ORDERED: traZODone HCl 50 MG TAB PO PRN (13:25)
--- NOTE | 2017-08-22 14:11 | PDOC.PN ---
- Subjective Encounter Start Date: 08/22/17 Encounter Start Time: 10:00 Subjective: pt up in bed no complains. She appears drowsy - Objective Vital Signs & Weight: Vital Signs (12 hours) Temp Pulse Pulse Pulse Resp BP BP 08/22/17 11:39 98.7 F 76 16 08/22/17 09:05 84 94 121/57 L 139/64 08/22/17 08:00 98.0 F 81 18 08/22/17 07:37 98.0 F 81 18 08/22/17 03:40 97.1 F L 78 20 BP BP Pulse Ox 08/22/17 11:39 139/68 96 08/22/17 09:05 08/22/17 08:00 08/22/17 07:37 144/78 H 95 08/22/17 03:40 138/67 94 L Weight Weight 2.406 oz Most Recent Monitor Data Heart Rate from ECG 95 NIBP 160/84 NIBP BP-Mean 105 Respiration from ECG 18 SpO2 96 I&O: 08/21/17 08/22/17 08/23/17 06:59 06:59 06:59 Intake Total 1562 280 Output Total 1525 600 Balance 37 -320 Result Diagrams: 08/22/17 04:24 08/22/17 04:24 Phys Exam - Physical Examination HEENT: PERRLA, moist MMs, sclera anicteric, TM's clear, oral pharynx no lesions , 2+ tonsils Neck: no nodes, no JVD, supple, full ROM Respiratory: no wheezing, no rales, no rhonchi, wheezing present, clear to auscultation bilateral Cardiovascular: RRR, no significant murmur, no rub, gallop, irregular Gastrointestinal: soft, non-tender, no distention, positive bowel sounds significant brusing all over and her left arm immoblized Neurological: non-focal, normal sensation, moves all 4 limbs Dx/Plan (1) Hyponatremia Code(s): E87.1 - HYPO-OSMOLALITY AND HYPONATREMIA Status: Acute (2) Multiple falls Code(s): R29.6 - REPEATED FALLS Status: Acute (3) UTI (urinary tract infection) Status: Acute (4) Near syncope Status: Acute (5) Hypokalemia Code(s): E87.6 - HYPOKALEMIA Status: Acute (6) Uncontrolled hypertension Code(s): I10 - ESSENTIAL (PRIMARY) HYPERTENSION Status: Acute (7) Anterior dislocation of humerus Code(s): S43.016A - ANTERIOR DISLOCATION OF UNSPECIFIED HUMERUS, INIT ENCNTR Status: Acute - Plan pt's hyponatremia is sever, on fluid restriction but she is orthostatic -: will check serum osmolarity and urine Na. Her hctz has been discontinued. -: echo pending -: will continue ceftriaxone for now -: will change her tramadol to prn she appears drowsy * . Review of Systems - Review of Systems ENT: negative: Ear Pain, Ear Discharge, Nose Pain, Nose Discharge, Nose Congestion, Mouth Pain, Mouth Swelling, Throat Pain, Throat Swelling, Other Respiratory: negative: Cough, Dry, Shortness of Breath, Hemoptysis, SOB with Excertion, Pleuritic Pain, Sputum, Wheezing Cardiovascular: negative: chest pain, palpitations, orthopnea, paroxysmal nocturnal dyspnea, edema, light headedness, other Gastrointestinal: negative: Nausea, Vomiting, Abdominal Pain, Diarrhea, Constipation, Melena, Hematochezia, Other Genitourinary: negative: Dysuria, Frequency, Incontinence, Hematuria, Retention , Other - Medications/Allergies Allergies/Adverse Reactions: Allergies Allergy/AdvReac Type Severity Reaction Status Date / Time Sulfa (Sulfonamide Allergy RASH AND Verified 08/20/17 12:53 Antibiotics) ITCHING Medications: Current Medications Acetaminophen (Tylenol) 1,000 mg PO Q6HR [facility] Last Admin: 08/22/17 10:53 Dose: 1,000 mg Al Hydroxide/Mg Hydroxide (Maalox) 15 ml PO Q4H PRN PRN Reason: Heartburn or Indigestion Benzonatate (Tessalon) 100 mg PO Q4H PRN PRN Reason: Cough Bisacodyl (Dulcolax) 10 mg PO DAILYPRN PRN PRN Reason: Constipation Calcium Carbonate (Tums) 1,000 mg PO Q4H PRN PRN Reason: Heartburn or Indigestion Calcium/Vitamin D (Caltrate 600 + Vit D) 1 tab PO DAILY [facility] Last Admin: 08/22/17 10:51 Dose: 1 tab Clonidine (Catapres) 0.1 mg PO Q4H PRN PRN Reason: Systolic BP > 160 Famotidine (Pepcid) 20 mg PO BID [facility] Last Admin: 08/22/17 10:51 Dose: 20 mg Ferrous Sulfate (Feosol) 325 mg PO QAM-WM [facility] Last Admin: 08/22/17 10:51 Dose: 325 mg Guaifenesin (Robitussin Sf) 200 mg PO Q4H PRN PRN Reason: Cough Hydralazine HCl (Apresoline) 10 mg SLOW IVP Q4H PRN PRN Reason: Systolic BP > 170 Ceftriaxone Sodium 1 gm/ (Sodium Chloride) 100 mls @ 200 mls/hr IVPB Q24HR [facility] Loratadine (Claritin) 10 mg PO DAILYPRN PRN PRN Reason: Sinus Symptoms Multivitamins (Theragran) 1 tab PO DAILY [facility] Last Admin: 08/22/17 10:51 Dose: 1 tab Nitroglycerin (Nitrostat) 0.4 mg SL Q5MIN PRN PRN Reason: Chest Pain Ccu Electrolyte (Replacement Protocol) 0 each FS PRN PRN PRN Reason: FOR ELECTROLYTE REPLACEMENT Ondansetron HCl (Zofran) 4 mg IVP Q6H PRN PRN Reason: Nausea Pantoprazole Sodium (Protonix) 40 mg PO DAILY [facility] Last Admin: 08/22/17 10:51 Dose: 40 mg Scopolamine (Transderm Scop) 1.5 mg TD Q3D [facility] Last Admin: 08/21/17 10:24 Dose: 1.5 mg Senna (Senokot) 2 tab PO HSPRN PRN PRN Reason: Constipation Sodium Chloride (Flush - Normal Saline) 10 ml IVF PRN PRN PRN Reason: Saline Flush Tramadol HCl (Ultram) 50 mg PO Q8HR PRN PRN Reason: Pain Trazodone HCl (Desyrel) 50 mg PO HSPRN PRN PRN Reason: . Last Admin: 08/21/17 20:56 Dose: 50 mg Trazodone HCl (Desyrel) 50 mg PO HS PRN PRN Reason: Insomnia
[2017-08-22 14:31] LABS: Anion Gap 15 mmol/L (10-20); BUN (Urea Nitrogen) 16 mg/dL (9.8-20.1); Calc. Creatinine Clearance 0 mL/min (70-130); Calcium 9.2 mg/dL (7.8-10.44); Carbon Dioxide 21 mmol/L (23-31); Chloride 92 mmol/L (98-107); Estimated GFR-MDRD 68; Glucose 97 mg/dL (83-110); Potassium 4.6 mmol/L (3.5-5.1); Sodium 123 mmol/L (136-145)
--- NOTE | 2017-08-22 15:36 | PRG ---
DATE OF SERVICE: 08/22/2017 SUBJECTIVE: The patient is hospital day #3 status post multiple falls in which she sustained an acut e on subacute intracranial hemorrhage. On admission, she was also noted to be hyponatremic and have a urinary tract infection, either of these or a combination of both may be contributing to her falls. She also reports history of vertigo. Overnight, she has had no issues. This morning, she is nakia ating a diet. She has been out of bed to use the bathroom and has started working with physical and occupational therapy. She states that she has had a headache in the past, but this has also resolved . OBJECTIVE: VITAL SIGNS: Temperature is 98.0, heart rate 81, blood pressure 144/78, respirations 18, oxygen satu ration is 95% on room air. GENERAL: The patient is resting comfortably in bed. She is awake, alert, and oriented x4. She has no complaints at this time and is awaiting placement in the [place] area. LUNGS: Clear to auscultation with good inspiratory and expiratory effort. HEART: Regular rate and rhythm. ABDOMEN: Soft, flat, nontender with active bowel sounds. EXTREMITIES: Neurovascularly intact x4. The left upper extremity has an ulnar gutter splint in plac e which is clean, dry, and intact. LABORATORY DATA: White blood cell count is 8.9, hemoglobin 11.1, hematocrit 32.2, platelets 291. So dium 123, potassium 4.6, chloride 92, CO2 21, BUN 16, creatinine 0.81, glucose 97. There are no radi ographs to review this morning. ASSESSMENT AND PLAN: 1. Status post fall. 2. Acute on subacute intracranial hemorrhage. 3. Left ulnar fracture. Orthopedics evaluated her and states that it would be treated nonoperativel y in a splint. 4. Urinary tract infection being treated with Rocephin. Sensitivities show it is susceptible to thi s. 5. Hyponatremia, being treated with fluid restriction and allow the patient to have Gatorade. 6. Hypokalemia, resolved. Plan will be to continue supportive care. The patient will be switched to Bactrim for her urinary tr act infection. Continue monitoring electrolytes and the patient likely to be discharged within the n day or two to [facility] bed for continuation of care and rehabilitation.
[2017-08-23] MEDS: Acetaminophen 500 MG TAB PO SCH ×3 (00:08→10:17)
[2017-08-23] MEDS ORDERED: cefTRIAXone\\ROCEPHIN 1 GM in Sodium Chloride 0.9% 100 ML IVPB SCH (01:00)
[2017-08-23] MEDS: Famotidine 20 MG TAB PO SCH (08:58)
[2017-08-23] MEDS: Ferrous Sulfate 325 MG TAB PO SCH (08:58)
[2017-08-23] MEDS: Calcium Carbonate + Vit D 1 TAB PO SCH (08:58)
[2017-08-23] MEDS: Multivit, Therapeutic 1 TAB PO SCH (08:59)
[2017-08-23 09:02] LABS: #Basophils 0.1 thou/uL (0.0-0.2); #Eosinphils 0.1 thou/uL (0.0-0.7); #Lymphocytes 1.1 thou/uL (1.20-3.40); #Monocytes 0.7 thou/uL (0.11-0.59); #Neutrophils 7.3 thou/uL (1.40-6.50); %Basophils 0.7 % (0.0-1.0); %Eosinophils 0.8 % (0.0-10.0); %Lymphocytes 11.9 % (21.0-51.0); %Monocytes 7.5 % (0.0-10.0); %Neutrophils 79.1 % (42.0-75.0); Hemoglobin 12.1 g/dL (12.0-16.0); Mean Corpuscular HGB CONC 33.4 g/dL (32.0-36.0); Mean Corpuscular Hemoglobin 31.7 pg (27.0-31.0); Mean Corpuscular Volume 95.1 fL (78.0-98.0); Mean Platelet Volume 6.4 fL (7.4-10.4); Platelet Count 329 thou/uL (130-400); RBC Distribution Width 13.5 % (11.5-14.5); Red Blood Cell (RBC) Count 3.82 mill/uL (4.20-5.40); White Blood Cell (WBC) Count 9.2 thou/uL (4.8-10.8)
[2017-08-23 09:29] LABS: Anion Gap 14 mmol/L (10-20); BUN (Urea Nitrogen) 14 mg/dL (9.8-20.1); Calc. Creatinine Clearance 0 mL/min (70-130); Calcium 9.4 mg/dL (7.8-10.44); Carbon Dioxide 22 mmol/L (23-31); Chloride 93 mmol/L (98-107); Estimated GFR-MDRD 71; Glucose 118 mg/dL (83-110); Magnesium 1.7 mg/dL (1.6-2.6); Phosphorus 2.5 mg/dL (2.3-4.7); Potassium 3.9 mmol/L (3.5-5.1); Sodium 125 mmol/L (136-145)
[2017-08-23 12:11] VITALS: BP 170/79
[2017-08-23] MEDS ORDERED: Sodium Chloride 1 GM TAB PO SCH (14:00)
[2017-08-23] MEDS ORDERED: Ondansetron ODT 4 MG TAB PO SCH (15:30)
[2017-08-23 15:44] VITALS: TEMP 98.5
--- NOTE | 2017-08-23 18:04 | CON ---
DATE OF CONSULTATION: 08/22/2017 REQUESTING PHYSICIAN: Dr. Drew Thornton. CONSULTING PHYSICIAN: Dr. Perry Marcelino. REASON FOR CONSULTATION: Minimally angulated left distal radius metaphyseal fracture. BRIEF CLINICAL HISTORY: Dariusz is an 82-year-old white female who was recently admitted to the medicine service for dizziness and falls. Apparently, she fell approximately a week ago [facility], on vacation, fell on an outstretched left forearm. She sustained a left distal radius metaphyseal fracture and our service was consulted for evaluation of this. Plain radiographs have been obtained which demonstrate fracture and her splint appears to be intact and they are comfortable. OBJECTIVE: GENERAL: Patient is alert and oriented to person, place, time, and situation, is very pleasant, nonfocal. MUSCULOSKELETAL: Visual inspection of the forearm demonstrates the splint to be intact. He has good digital excursion. Denies any ulceration or erythema of the fingers over proximal to the splint. IMPRESSION: Left distal radius metaphyseal fracture, but otherwise has good alignment and at acceptable reduction. PLAN: Continue current care. We will reapply the splint and see her back in clinic in 10-12 days, an ulnar gutter splint will be applied to limit supination pronation. [facility]
[2017-08-23] MEDS ORDERED: Cefuroxime Axetil 250 MG TAB PO SCH (21:00)
--- NOTE | 2017-08-23 21:47 | OP ---
PREOPERATIVE DIAGNOSIS: Left distal radius metaphyseal fracture. POSTOPERATIVE DIAGNOSIS: Left distal radius metaphyseal fracture. BEDSIDE PROCEDURE: Splint swab and replacing of a left distal radius fracture, in ulnar gutter splint. SURGEON: Nilo Dietz PA-C ANESTHESIA: None required. PROCEDURE IN DETAIL: After informed consent was obtained, the patient was positioned appropriately. The splint on the left arm was removed which demonstrated evidence of a little bit of swelling in and around the fracture site. A well padded ulnar guttter splint was applied and allowed to cure. PLAN: Continue his current care. [facility]
[2017-08-24] MEDS ORDERED: cefTRIAXone\\ROCEPHIN 1 GM, Admixture Fee 1 EACH in Sodium Chloride 0.9% 100 ML IVPB SCH (01:00)
== END 2017-08-23 15:57 | disposition swing bed (61) | DRG 312 ==
LOC: ERS 09:25 → ERHOLD 12:53 → CCU 14:52 → ERHOLD 15:43 → CCU 15:45 → SURG A 08-21 09:21 → 2SE 08-21 10:59
PROVIDERS: ADMIT Specialist; ATTEND Specialist
PROC: 2W0DX1Z Change Splint on Left Lower Arm (ICD-10-PCS; principal; 2017-08-23)
DX: I95.1 Orthostatic hypotension (principal); S06.5X9A Traumatic subdural hemorrhage with loss of consciousness of unspecified duration, initial encounter; S52.502A Unspecified fracture of the lower end of left radius, initial encounter for closed fracture; I67.82 Cerebral ischemia; G96.0 Cerebrospinal fluid leak; N39.0 Urinary tract infection, site not specified; I10 Essential (primary) hypertension; R29.6 Repeated falls; F11.10 Opioid abuse, uncomplicated; E87.6 Hypokalemia; I49.3 Ventricular premature depolarization; B96.20 Unspecified Escherichia coli [E. coli] as the cause of diseases classified elsewhere; W10.9XXA Fall (on) (from) unspecified stairs and steps, initial encounter; Z91.81 History of falling; Z79.899 Other long term (current) drug therapy; Z88.2 Allergy status to sulfonamides; Z79.891 Long term (current) use of opiate analgesic; Z90.49 Acquired absence of other specified parts of digestive tract; Z86.010 Personal history of colon polyps; Z87.81 Personal history of (healed) traumatic fracture; Z90.710 Acquired absence of both cervix and uterus; Z90.79 Acquired absence of other genital organ(s); Z90.722 Acquired absence of ovaries, bilateral; Z86.000 Personal history of in-situ neoplasm of breast; Z90.12 Acquired absence of left breast and nipple
CPT/HCPCS: 36415; 70450; 70486; 70551; 71045; 72125; 80048; 80053; 80306; 80307; 81003; 81015; 82533; 82550; 82553; 83690; 83735; 83930; 83935; 84100; 84300; 84443; 84484; 85025; 85610; 85730; 87077; 87086; 87186; 93005; 93306; 93880; 96365; 96366; 96367; 96375; G8978-GP-CL; G8979-GP-CK; G8987-GO-CM; G8988-GO-CK; G9162-GN-CH; G9163-GN-CH; G9168-GN-CI; G9168-GN-CJ; G9169-GN-CI; G9169-GN-CJ; J0360; J0696; J2405; J7050; Q0162

== ENCOUNTER 2019-01-10 13:11 | Outpatient (CLI) | payer MEDICARE ==
[~2019-01-10 13:11] MED LIST: Magnevist 469MG/ML 20 ML VIAL ONE
--- NOTE | 2019-01-10 14:20 | MRI ---
MRI Brain W WO Con: 01/10/2019 12:00 AM CLINICAL HISTORY: Headache. COMPARISON: None. FINDINGS: Prominent susceptibility does limit evaluation, emanating from patient's facial region. Extra axial spaces: Widened. Due to parenchymal atrophy. Acute infarction: None. Ventricular system: Normal in size and morphology for the patient's age. Basal cisterns: Normal. Cerebral parenchyma: Microvascular ischemic changes. Midline shift: None. Cerebellum: Normal. Brainstem: Normal. Paranasal sinuses:Mild right mastoid fluid Intraaxial Enhancement: None IMPRESSION:No acute intracranial abnormality.
== END 2019-01-10 13:12 | disposition home or self-care (01) ==
LOC: BICMRI 13:11
PROVIDERS: ATTEND Family Medicine
DX: G44.89 Other headache syndrome (principal)
CPT/HCPCS: 70553; A9579

== ENCOUNTER 2021-11-21 10:06 | Inpatient (IN) | payer MEDICARE ==
[2021-11-21 11:30] LABS: #Lymphocytes 0.8 thou/uL (1.20-3.40); #Monocytes 0.5 thou/uL (0.11-0.59); #Neutrophils 8.6 thou/uL (1.40-6.50); %Eosinophils 0.4 % (0.0-10.0); %Lymphocytes 7.7 % (21.0-51.0); %Monocytes 5.1 % (0.0-10.0); %Neutrophils 86.8 % (42.0-75.0); Hemoglobin 12.2 g/dL (12.0-16.0); Mean Corpuscular HGB CONC 33.7 g/dL (32.0-36.0); Mean Corpuscular Hemoglobin 31.2 pg (27.0-31.0); Mean Corpuscular Volume 92.5 fL (78.0-98.0); Mean Platelet Volume 7.5 fL (7.4-10.4); Platelet Count 316 thou/uL (130-400); RBC Distribution Width 14.3 % (11.5-14.5); Red Blood Cell (RBC) Count 3.91 mill/uL (4.20-5.40); White Blood Cell (WBC) Count 9.9 thou/uL (4.8-10.8)
[2021-11-21 11:52] LABS: ALT (SGPT) Less than 7 U/L (8-55); AST (SGOT) 12 U/L (5-34); Albumin 4.1 g/dL (3.4-4.8); Alkaline Phosphatase 143 U/L (40-110); Anion Gap 19 mmol/L (10-20); BUN (Urea Nitrogen) 42 mg/dL (9.8-20.1); Bilirubin, Total 0.3 mg/dL (0.2-1.2); Calc. Creatinine Clearance 0 mL/min (70-130); Calcium 8.3 mg/dL (7.8-10.44); Carbon Dioxide 14 mmol/L (23-31); Chloride 104 mmol/L (98-107); Estimated GFR 12; Globulin 2.6 g/dL (2.4-3.5); Glucose 112 mg/dL (83-110); Protein, Total 6.7 g/dL (5.8-8.1); Sodium 134 mmol/L (136-145)
[2021-11-21 12:02] LABS: Potassium 2.9 mmol/L (3.5-5.1)
[2021-11-21] MEDS ORDERED: Ondansetron PF 4 MG/2 ML Vial ONE (12:05)
[2021-11-21] MEDS ORDERED: Potassium Chloride 20 MEQ/100 ML PREMIX BAG ONE (12:05)
[2021-11-21] MEDS ORDERED: Potassium Chloride 40 MEQ in Lactated Ringer's 1,000 ML IV SCH (13:30)
[2021-11-21 13:36] LABS: Analyzer IN Cardio ER; pH (venous) 7.16 (7.32-7.43)
[2021-11-21 13:37] LABS: Actual Bicarbonate (HCO3v) 15 mEq/L (22-28); Base Excess -13.2 mEq/L (-2.0 to +3.0); Hemoglobin (Hb) 12.5 g/dL (11.7-16.1)
[2021-11-21 13:38] LABS: Calcium, Ionized (venous) 1.09 mmol/L (1.16-1.32); Chloride (VBG) 111 mmol/L (98-106); Potassium (VBG) 2.77 mmol/L (3.70-5.30); Sodium 134.9 mmol/L (133-146)
[2021-11-21 13:56] LABS: Magnesium 2.1 mg/dL (1.6-2.6); Phosphorus 6.1 mg/dL (2.3-4.7)
[2021-11-21] MEDS ORDERED: Acetaminophen 325 MG TAB PO PRN (14:00)
[2021-11-21] MEDS ORDERED: Ondansetron PF 4 MG/2 ML Vial IVP PRN (14:00)
[2021-11-21] MEDS ORDERED: Calcium Carbonate 500 MG ChewTAB PO PRN (14:00)
[2021-11-21] MEDS ORDERED: hydrALAZINE 20 MG/ML VIAL SLOW IVP PRN (14:30)
[2021-11-21 15:34] LABS: Troponin I 0.082 ng/mL (< 0.028)
[2021-11-21] MEDS ORDERED: Potassium Chloride 20 MEQ TAB PO SCH (17:00)
[2021-11-21 17:02] VITALS: BMI 20.8
[2021-11-21] MEDS: metroNIDAZOLE 500 MG in Premix Bag 1 BAG IVPB SCH (17:52)
[2021-11-21] MEDS ORDERED: FLU VACC QS2022-23(65YR UP)/PF 240 MCG/0.7 ML SYRINGE IM ONE (18:00)
[2021-11-21] MEDS: Potassium Chloride 20 MEQ in Lactated Ringer's 1,000 ML IV SCH ×2 (19:36→21:07)
[2021-11-21] MEDS: Saccharomyces boulardii 250 MG CAP PO SCH (21:15)
[2021-11-21] MEDS: Aspirin 81 mg Enteric Coated Tablet PO SCH (21:15)
[2021-11-21] MEDS: Pantoprazole 40 MG VIAL IVP SCH (21:16)
[2021-11-21] MEDS: Heparin 5,000 UNITS/ML VIAL SC SCH (21:16)
[2021-11-22] MEDS: metroNIDAZOLE 500 MG in Premix Bag 1 BAG IVPB SCH ×4 (01:17→23:11)
[2021-11-22] MEDS: Potassium Chloride 20 MEQ in Lactated Ringer's 1,000 ML IV SCH ×2 (03:13→10:43)
[2021-11-22 04:25] LABS: Bacteria/HPF None Seen HPF (None Seen); Bilirubin Negative (Negative); Blood, Urine Negative (Negative); Broad Cast 0-3 LPF (None Seen); Clarity Clear (Clear); Glucose, Urine (Dipstick) Normal (Negative); Ketone, Urine Negative (Negative); Leukocyte 25 Leu/uL (Negative); Nitrite Negative (Negative); Protein, Urine (Dipstick) 20 mg/dL (Neg-Trace); RBC/HPF 0-3 HPF (0-3); Specific Gravity, Urine 1.013 (1.002-1.036); Squamous Epithelial 0-3 HPF (0-3); Urobilinogen Normal mg/dL (Less than 2); WBC/HPF 0-3 HPF (0-3); pH, Urine 5.5 (5.0-9.0)
[2021-11-22 04:26] LABS: Urine Culture Reflex Yes Yes
[2021-11-22 04:53] LABS: #Eosinphils 0.1 thou/uL (0.0-0.7); #Monocytes 0.6 thou/uL (0.11-0.59); #Neutrophils 7.3 thou/uL (1.40-6.50); %Basophils 0.4 % (0.0-1.0); %Eosinophils 1.3 % (0.0-10.0); %Lymphocytes 11.4 % (21.0-51.0); %Neutrophils 79.9 % (42.0-75.0); Hemoglobin 12.1 g/dL (12.0-16.0); Mean Corpuscular HGB CONC 33.1 g/dL (32.0-36.0); Mean Corpuscular Hemoglobin 31.1 pg (27.0-31.0); Mean Corpuscular Volume 93.8 fL (78.0-98.0); Mean Platelet Volume 7.2 fL (7.4-10.4); Platelet Count 287 thou/uL (130-400); RBC Distribution Width 14.5 % (11.5-14.5); Red Blood Cell (RBC) Count 3.91 mill/uL (4.20-5.40); White Blood Cell (WBC) Count 9.2 thou/uL (4.8-10.8)
[2021-11-22 05:24] LABS: ALT (SGPT) Less than 7 U/L (8-55); AST (SGOT) 13 U/L (5-34); Albumin 4.1 g/dL (3.4-4.8); Alkaline Phosphatase 142 U/L (40-110); Anion Gap 16 mmol/L (10-20); BUN (Urea Nitrogen) 32 mg/dL (9.8-20.1); Bilirubin, Total 0.5 mg/dL (0.2-1.2); Calc. Creatinine Clearance 16 mL/min (70-130); Calcium 8.9 mg/dL (7.8-10.44); Carbon Dioxide 14 mmol/L (23-31); Chloride 111 mmol/L (98-107); Estimated GFR 20; Globulin 2.9 g/dL (2.4-3.5); Glucose 96 mg/dL (83-110); Phosphorus 3.5 mg/dL (2.3-4.7); Potassium 2.5 mmol/L (3.5-5.1); Sodium 138 mmol/L (136-145)
[2021-11-22] MEDS ORDERED: Potassium Chloride 20 MEQ TAB PO SCH (06:00)
[2021-11-22] MEDS: Potassium Chloride 20 MEQ in Premix Bag 1 BAG IVPB SCH ×2 (06:28→08:09)
[2021-11-22] MEDS: Heparin 5,000 UNITS/ML VIAL SC SCH ×2 (08:09→22:10)
[2021-11-22] MEDS: Potassium Chloride 20 MEQ TAB PO SCH ×2 (08:09→17:06)
[2021-11-22 14:40] LABS: Anion Gap 14 mmol/L (10-20); BUN (Urea Nitrogen) 25 mg/dL (9.8-20.1); Calc. Creatinine Clearance 19 mL/min (70-130); Calcium 8.5 mg/dL (7.8-10.44); Carbon Dioxide 10 mmol/L (23-31); Chloride 114 mmol/L (98-107); Estimated GFR 26; Glucose 79 mg/dL (83-110); Potassium 3.4 mmol/L (3.5-5.1); Sodium 135 mmol/L (136-145)
[2021-11-22] MEDS ORDERED: Sodium Bicarbonate Tab 325 MG TAB PO SCH (15:00)
[2021-11-22 16:30] LABS: Campy jejuni + coli by PCR Negative (Negative); STEC Shiga Toxin 1+2 Negative (Negative); Salmonella spp. by PCR Negative (Negative); Shigella spp + EIEC by PCR Negative (Negative)
[2021-11-22 18:28] LABS: Potassium 3.6 mmol/L (3.5-5.1)
[2021-11-22] MEDS: Ondansetron ODT 4 MG TAB PO PRN (21:55)
[2021-11-22] MEDS: Pantoprazole 40 MG VIAL IVP SCH (22:03)
[2021-11-22] MEDS: Aspirin 81 mg Enteric Coated Tablet PO SCH (22:10)
[2021-11-22] MEDS: Saccharomyces boulardii 250 MG CAP PO SCH (22:11)
[2021-11-22 22:42] LABS: Potassium 3.6 mmol/L (3.5-5.1)
[2021-11-23 02:30] LABS: #Eosinphils 0.1 thou/uL (0.0-0.7); #Lymphocytes 0.8 thou/uL (1.20-3.40); #Monocytes 0.6 thou/uL (0.11-0.59); #Neutrophils 4.1 thou/uL (1.40-6.50); %Eosinophils 1.9 % (0.0-10.0); %Lymphocytes 14.3 % (21.0-51.0); %Monocytes 10.1 % (0.0-10.0); %Neutrophils 73.6 % (42.0-75.0); Hemoglobin 9.5 g/dL (12.0-16.0); Mean Corpuscular HGB CONC 32.5 g/dL (32.0-36.0); Mean Corpuscular Hemoglobin 30.4 pg (27.0-31.0); Mean Corpuscular Volume 93.5 fL (78.0-98.0); Mean Platelet Volume 7.4 fL (7.4-10.4); Platelet Count 233 thou/uL (130-400); RBC Distribution Width 14.6 % (11.5-14.5); Red Blood Cell (RBC) Count 3.14 mill/uL (4.20-5.40); White Blood Cell (WBC) Count 5.5 thou/uL (4.8-10.8)
[2021-11-23 03:05] LABS: Anion Gap 11 mmol/L (10-20); BUN (Urea Nitrogen) 16 mg/dL (9.8-20.1); Calc. Creatinine Clearance 26 mL/min (70-130); Calcium 8.2 mg/dL (7.8-10.44); Carbon Dioxide 17 mmol/L (23-31); Chloride 113 mmol/L (98-107); Estimated GFR 36; Glucose 114 mg/dL (83-110); Potassium 3.7 mmol/L (3.5-5.1); Sodium 137 mmol/L (136-145)
[2021-11-23] MEDS: Heparin 5,000 UNITS/ML VIAL SC SCH ×2 (09:09→20:42)
[2021-11-23] MEDS: metroNIDAZOLE 500 MG in Premix Bag 1 BAG IVPB SCH ×3 (09:59→23:25)
[2021-11-23] MEDS ORDERED: GoLYTELY 4,000 ml Bottle PO SCH (17:45)
[2021-11-23] MEDS: Pantoprazole 40 MG VIAL IVP SCH (20:42)
[2021-11-23] MEDS: Sodium Bicarbonate Tab 325 MG TAB PO SCH (20:42)
[2021-11-23] MEDS: Aspirin 81 mg Enteric Coated Tablet PO SCH (20:42)
[2021-11-23] MEDS: Saccharomyces boulardii 250 MG CAP PO SCH (20:42)
[2021-11-23] MEDS: Ondansetron ODT 4 MG TAB PO PRN (22:39)
[2021-11-23] MEDS ORDERED: Loratadine 10 MG TAB PO SCH (23:00)
[2021-11-24 04:48] LABS: #Eosinphils 0.1 thou/uL (0.0-0.7); #Lymphocytes 1.4 thou/uL (1.20-3.40); #Monocytes 0.5 thou/uL (0.11-0.59); #Neutrophils 4.5 thou/uL (1.40-6.50); %Basophils 0.5 % (0.0-1.0); %Lymphocytes 21.6 % (21.0-51.0); %Monocytes 8.1 % (0.0-10.0); %Neutrophils 67.8 % (42.0-75.0); Mean Corpuscular HGB CONC 33.9 g/dL (32.0-36.0); Mean Corpuscular Hemoglobin 31.3 pg (27.0-31.0); Mean Corpuscular Volume 92.4 fL (78.0-98.0); Mean Platelet Volume 7.6 fL (7.4-10.4); Platelet Count 227 thou/uL (130-400); RBC Distribution Width 14.6 % (11.5-14.5); White Blood Cell (WBC) Count 6.6 thou/uL (4.8-10.8)
[2021-11-24 05:03] LABS: Anion Gap 10 mmol/L (10-20); BUN (Urea Nitrogen) 8 mg/dL (9.8-20.1); Calc. Creatinine Clearance 32 mL/min (70-130); Calcium 8.1 mg/dL (7.8-10.44); Carbon Dioxide 20 mmol/L (23-31); Chloride 109 mmol/L (98-107); Estimated GFR 48; Glucose 103 mg/dL (83-110); Potassium 3.1 mmol/L (3.5-5.1); Sodium 136 mmol/L (136-145)
[2021-11-24] MEDS ORDERED: Potassium Chloride 20 MEQ in Premix Bag 1 BAG IVPB SCH (09:00)
[2021-11-24] MEDS: metroNIDAZOLE 500 MG in Premix Bag 1 BAG IVPB SCH ×2 (09:09→17:26)
[2021-11-24] MEDS: Heparin 5,000 UNITS/ML VIAL SC SCH ×2 (09:09→21:04)
[2021-11-24] MEDS: Sodium Bicarbonate Tab 325 MG TAB PO SCH ×2 (09:10→21:04)
[2021-11-24] MEDS ORDERED: Promethazine HCl 25 MG/ML VIAL IM PRN (14:40)
[2021-11-24] MEDS ORDERED: Ondansetron HCl/PF 4 MG/2 ML Vial IVP PRN (14:40)
[2021-11-24] MEDS ORDERED: Promethazine HCl 25 MG/ML VIAL IVPB PRN (14:40)
[2021-11-24] MEDS ORDERED: Loperamide HCl 2 MG CAP PO PRN (14:46)
[2021-11-24] MEDS: Saccharomyces boulardii 250 MG CAP PO SCH (21:03)
[2021-11-24] MEDS: diphenhydrAMINE 25 MG CAP PO SCH (21:03)
[2021-11-24] MEDS: Aspirin 81 mg Enteric Coated Tablet PO SCH (21:04)
[2021-11-24] MEDS: Pantoprazole 40 MG VIAL IVP SCH (21:04)
[2021-11-25] MEDS: metroNIDAZOLE 500 MG in Premix Bag 1 BAG IVPB SCH ×3 (00:22→16:34)
[2021-11-25 04:36] LABS: #Eosinphils 0.2 thou/uL (0.0-0.7); #Lymphocytes 1.8 thou/uL (1.20-3.40); #Monocytes 0.5 thou/uL (0.11-0.59); #Neutrophils 4.1 thou/uL (1.40-6.50); %Eosinophils 2.7 % (0.0-10.0); %Lymphocytes 27.4 % (21.0-51.0); %Monocytes 7.4 % (0.0-10.0); %Neutrophils 62.6 % (42.0-75.0); Hemoglobin 9.9 g/dL (12.0-16.0); Mean Corpuscular HGB CONC 32.8 g/dL (32.0-36.0); Mean Corpuscular Hemoglobin 30.8 pg (27.0-31.0); Mean Platelet Volume 7.6 fL (7.4-10.4); Platelet Count 238 thou/uL (130-400); RBC Distribution Width 14.6 % (11.5-14.5); White Blood Cell (WBC) Count 6.5 thou/uL (4.8-10.8)
[2021-11-25 04:59] LABS: Anion Gap 8 mmol/L (10-20); BUN (Urea Nitrogen) 6 mg/dL (9.8-20.1); Calc. Creatinine Clearance 39 mL/min (70-130); Calcium 7.9 mg/dL (7.8-10.44); Carbon Dioxide 23 mmol/L (23-31); Chloride 109 mmol/L (98-107); Estimated GFR 57; Glucose 106 mg/dL (83-110); Potassium 3.2 mmol/L (3.5-5.1); Sodium 137 mmol/L (136-145)
[2021-11-25] MEDS: Sodium Bicarbonate Tab 325 MG TAB PO SCH ×2 (08:28→21:44)
[2021-11-25] MEDS: Heparin 5,000 UNITS/ML VIAL SC SCH ×2 (08:28→21:44)
[2021-11-25] MEDS ORDERED: Potassium Chloride 20 MEQ TAB PO SCH (09:00)
[2021-11-25] MEDS ORDERED: Loratadine 10 MG TAB PO SCH (15:30)
[2021-11-25] MEDS: Ondansetron ODT 4 MG TAB PO PRN (21:43)
[2021-11-25] MEDS: Aspirin 81 mg Enteric Coated Tablet PO SCH (21:44)
[2021-11-25] MEDS: diphenhydrAMINE 25 MG CAP PO SCH (21:44)
[2021-11-25] MEDS: Pantoprazole 40 MG VIAL IVP SCH (21:44)
[2021-11-25] MEDS: Saccharomyces boulardii 250 MG CAP PO SCH (21:44)
[2021-11-26] MEDS: metroNIDAZOLE 500 MG in Premix Bag 1 BAG IVPB SCH ×2 (00:08→12:45)
[2021-11-26 05:10] LABS: #Eosinphils 0.2 thou/uL (0.0-0.7); #Monocytes 0.5 thou/uL (0.11-0.59); #Neutrophils 4.4 thou/uL (1.40-6.50); %Basophils 0.4 % (0.0-1.0); %Eosinophils 2.7 % (0.0-10.0); %Lymphocytes 28.3 % (21.0-51.0); %Monocytes 7.3 % (0.0-10.0); %Neutrophils 61.2 % (42.0-75.0); Hemoglobin 9.8 g/dL (12.0-16.0); Mean Corpuscular HGB CONC 32.8 g/dL (32.0-36.0); Mean Corpuscular Hemoglobin 30.7 pg (27.0-31.0); Mean Corpuscular Volume 93.6 fL (78.0-98.0); Mean Platelet Volume 8.3 fL (7.4-10.4); Platelet Count 218 thou/uL (130-400); RBC Distribution Width 14.9 % (11.5-14.5); Red Blood Cell (RBC) Count 3.19 mill/uL (4.20-5.40); White Blood Cell (WBC) Count 7.2 thou/uL (4.8-10.8)
[2021-11-26 05:12] LABS: Anion Gap 11 mmol/L (10-20); BUN (Urea Nitrogen) 8 mg/dL (9.8-20.1); Calc. Creatinine Clearance 39 mL/min (70-130); Calcium 8.1 mg/dL (7.8-10.44); Carbon Dioxide 22 mmol/L (23-31); Chloride 108 mmol/L (98-107); Estimated GFR 56; Glucose 102 mg/dL (83-110); Potassium 3.6 mmol/L (3.5-5.1); Sodium 137 mmol/L (136-145)
[2021-11-26] MEDS ORDERED: Loratadine 10 MG TAB PO SCH (09:00)
[2021-11-26] MEDS ORDERED: Fluticasone Propionate Nasal Spray 16 gm Bottle NASAL SCH (09:00)
[2021-11-26] MEDS: Sodium Bicarbonate Tab 325 MG TAB PO SCH (10:35)
[2021-11-26] MEDS: Heparin 5,000 UNITS/ML VIAL SC SCH (10:36)
[2021-11-26 12:15] VITALS: BP 145/72; TEMP 97.8
== END 2021-11-26 14:55 | disposition home health service (06) | DRG 391 ==
LOC: ERS 10:06 → 2NO 13:34
PROVIDERS: ADMIT Internal Medicine; ATTEND Hospitalist
PROC: 0DBN8ZX Excision of Sigmoid Colon, Via Natural or Artificial Opening Endoscopic, Diagnostic (ICD-10-PCS; principal; 2021-11-24)
DX: A09 Infectious gastroenteritis and colitis, unspecified (principal); G92.8 Other toxic encephalopathy; N17.9 Acute kidney failure, unspecified; E87.1 Hypo-osmolality and hyponatremia; E87.20 Acidosis, unspecified; Z20.822 Contact with and (suspected) exposure to COVID-19; F41.9 Anxiety disorder, unspecified; F32.A Depression, unspecified; N18.30 Chronic kidney disease, stage 3 unspecified; K44.9 Diaphragmatic hernia without obstruction or gangrene; K57.30 Diverticulosis of large intestine without perforation or abscess without bleeding; E87.6 Hypokalemia; N31.9 Neuromuscular dysfunction of bladder, unspecified; Z90.49 Acquired absence of other specified parts of digestive tract; Z88.2 Allergy status to sulfonamides; Z91.81 History of falling; Z90.710 Acquired absence of both cervix and uterus
CPT/HCPCS: 36415; 74176; 76770; 80048; 80053; 81001; 82010; 82805; 83605; 83630; 83690; 83735; 84100; 84484; 85025; 87015; 87086; 87206; 87324; 87328; 87329; 87449; 87505; 88305; 96374; 96375; C9113; J0744; J1644; J2405; J3480; J7070; J7120; Q0162; U0003; U0005

== ENCOUNTER 2024-11-14 08:11 | Day surgery (SDC) | payer MEDICARE ==
[2024-11-13 14:29] VITALS: BMI 19.6
[2024-11-14] MEDS ORDERED: PROPOFOL 20 ML ONE ×2 (09:44→09:56)
== END 2024-11-14 11:08 | disposition home or self-care (01) ==
LOC: SDC 08:11
PROVIDERS: ATTEND Internal Medicine Gastroenterology
PROC: 0D738ZZ Dilation of Lower Esophagus, Via Natural or Artificial Opening Endoscopic (ICD-10-PCS; principal; 2024-11-14)
DX: K22.2 Esophageal obstruction (principal); K21.00 Gastro-esophageal reflux disease with esophagitis, without bleeding; K22.10 Ulcer of esophagus without bleeding; K44.9 Diaphragmatic hernia without obstruction or gangrene; E78.00 Pure hypercholesterolemia, unspecified; F32.A Depression, unspecified; R63.4 Abnormal weight loss; Z68.1 Body mass index [BMI] 19.9 or less, adult; Z90.710 Acquired absence of both cervix and uterus; Z79.899 Other long term (current) drug therapy
CPT/HCPCS: 43249; J2704; C1726